=== PATIENT | male | born 1965 | race African-American/Black ===

== ENCOUNTER 2022-03-28 18:27 | Inpatient (IN) | payer OTHER, SELFPAY ==
[2022-03-28 19:22] VITALS: BP 127/67; PULSE 82; RESP 16; TEMP 36.6; O2SAT 96; BMI 46.4
[2022-03-28] MEDS: Gabapentin 600 MG TABLET PO (20:41)
[2022-03-28] MEDS: Melatonin 3 MG TABLET 6 MG PO (20:41)
[2022-03-28] MEDS: Apixaban 5 MG TABLET PO (20:42)
[2022-03-28] MEDS: carBAMazepine 100 MG TAB.CHEW PO (21:10)
[2022-03-28] MEDS: hydrOXYzine HCL 25 MG TABLET PO (21:44)
--- NOTE | 2022-03-28 22:41 | PC.ADMIT ---
Pt is a 56 year old male admitted on CV from [facility] for concerns of Increased depression and anxiety. Recent Hx of SIB through burning self, substance use and non med compliance and relationship stresses. Pt is alert and oriented X4, Covid negative, Tox screen positive for cocain. VSS, Normal EKG. Pt presentation is disheveled, irritable mood. Speech is regular with normal tone, rhythm and ghulam. Pt denies feeling suicidal at this time, endorsed depression and anxiety saying that being here makes him feel like he is in group home. Pt signed a 3 day notice. Pt reports extensive medical history including, neuropathy in the right leg, hyperlipidemia, HTN, arthritis, inflammatory disc and nerve damage in lower extremities, sleep apnea (no CPAP currently being used) deep vein thrombosis and scoliosis. Admission order obtained.
[2022-03-28] MEDS: Amitriptyline HCl 50 MG TABLET 100 MG PO (23:26)
[2022-03-29 06:00] VITALS: BP 143/100; PULSE 98; RESP 16; O2SAT 97
--- NOTE | 2022-03-29 08:00 | ECG_ITS ---
Test Reason : check qtc Blood Pressure : / mmHG Vent. Rate : 087 BPM Atrial Rate : 087 BPM P-R Int : 182 ms QRS Dur : 100 ms QT Int : 390 ms P-R-T Axes : 065 025 036 degrees QTc Int : 469 ms Normal sinus rhythm Normal ECG When compared with ECG of 04-FEB-2003 15:11, No significant change was found Referred By: Rudy Lane Electronically Signed By:GILLIAN MARX MD
--- NOTE | 2022-03-29 08:15 | PC.NURSE ---
Meliton refused lab work this morning.
[2022-03-29] MEDS: Multivitamin TABLET 1 TAB PO (09:47)
[2022-03-29] MEDS: FLUoxetine HCl Oral Solution 20 MG/5 ML SOLUTION 40 MG PO (09:47)
[2022-03-29] MEDS: Gabapentin 600 MG TABLET PO ×3 (09:47→20:14)
[2022-03-29] MEDS: hydrOXYzine HCL 25 MG TABLET PO (09:47)
[2022-03-29] MEDS: Folic Acid 1 MG TABLET PO (09:47)
[2022-03-29] MEDS: Atorvastatin Calcium 40 MG TABLET PO (09:48)
[2022-03-29] MEDS: Thiamine HCL 100 MG TABLET PO (09:48)
[2022-03-29] MEDS: Losartan Potassium 25 MG TABLET PO (09:48)
[2022-03-29] MEDS: Naltrexone HCl 50 MG TABLET PO (09:48)
[2022-03-29] MEDS: Apixaban 5 MG TABLET PO ×2 (09:48→20:14)
[2022-03-29] MEDS: carBAMazepine 100 MG TAB.CHEW PO ×2 (09:48→20:14)
[2022-03-29] MEDS: amLODIPine Besylate 10 MG TABLET PO (13:43)
[2022-03-29 13:46] VITALS: BP 122/66; PULSE 87; RESP 16; O2SAT 96
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
[2022-03-29] MEDS: Prazosin HCL 1 MG CAPSULE PO ×2 (14:27→20:14)
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
[2022-03-29 18:00] VITALS: BP 124/79; PULSE 89; RESP 16; TEMP 36.8; O2SAT 99
[2022-03-29] MEDS: Amitriptyline HCl 50 MG TABLET 100 MG PO (20:15)
[2022-03-29] MEDS: Melatonin 3 MG TABLET 6 MG PO (20:15)
[2022-03-29] MEDS: Acetaminophen 325 MG TABLET 650 MG PO (20:27)
[2022-03-30 06:00] VITALS: BP 104/55; PULSE 82; RESP 14
[2022-03-30] MEDS: Losartan Potassium 25 MG TABLET PO (09:37)
[2022-03-30] MEDS: Thiamine HCL 100 MG TABLET PO (09:37)
[2022-03-30] MEDS: Folic Acid 1 MG TABLET PO (09:37)
[2022-03-30] MEDS: Ferrous Sulfate 324 MG TABLET.DR PO (09:37)
[2022-03-30] MEDS: Multivitamin TABLET 1 TAB PO (09:37)
[2022-03-30] MEDS: Apixaban 5 MG TABLET PO ×2 (09:37→20:24)
[2022-03-30] MEDS: Naltrexone HCl 50 MG TABLET PO (09:37)
[2022-03-30] MEDS: Atorvastatin Calcium 40 MG TABLET PO (09:37)
[2022-03-30] MEDS: FLUoxetine HCl Oral Solution 20 MG/5 ML SOLUTION 40 MG PO (09:37)
[2022-03-30] MEDS: Prazosin HCL 1 MG CAPSULE PO ×3 (09:37→20:25)
[2022-03-30] MEDS: carBAMazepine 100 MG TAB.CHEW PO ×2 (09:38→20:24)
[2022-03-30] MEDS: amLODIPine Besylate 10 MG TABLET PO (09:38)
[2022-03-30] MEDS: Gabapentin 600 MG TABLET PO ×3 (09:38→20:24)
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
[2022-03-30] MEDS: risperiDONE 0.5 MG TABLET PO ×2 (13:52→20:26)
[2022-03-30 17:02] VITALS: BP 138/61; PULSE 83; RESP 18; TEMP 36.8; O2SAT 95
[2022-03-30] MEDS: Amitriptyline HCl 50 MG TABLET 100 MG PO (20:24)
[2022-03-30] MEDS: Melatonin 3 MG TABLET 6 MG PO (20:25)
[2022-03-30] MEDS: hydrOXYzine HCL 50 MG TABLET 100 MG PO (20:29)
[2022-03-31 06:00] VITALS: BP 135/73; PULSE 95; RESP 16; O2SAT 97
[2022-03-31] MEDS: Atorvastatin Calcium 40 MG TABLET PO (09:26)
[2022-03-31] MEDS: Prazosin HCL 1 MG CAPSULE PO ×3 (09:26→21:06)
[2022-03-31] MEDS: Thiamine HCL 100 MG TABLET PO (09:26)
[2022-03-31] MEDS: FLUoxetine HCl Oral Solution 20 MG/5 ML SOLUTION 40 MG PO (09:26)
[2022-03-31] MEDS: amLODIPine Besylate 10 MG TABLET PO (09:26)
[2022-03-31] MEDS: Multivitamin TABLET 1 TAB PO (09:27)
[2022-03-31] MEDS: Apixaban 5 MG TABLET PO ×2 (09:27→21:07)
[2022-03-31] MEDS: Fluticasone Propionate Nasal 16 GM SPRAY 1 SPRAY NOSTRIL-B (09:27)
[2022-03-31] MEDS: carBAMazepine 100 MG TAB.CHEW PO ×2 (09:27→21:06)
[2022-03-31] MEDS: Folic Acid 1 MG TABLET PO (09:27)
[2022-03-31] MEDS: Gabapentin 600 MG TABLET PO ×3 (09:27→21:06)
[2022-03-31] MEDS: Naltrexone HCl 50 MG TABLET PO (09:27)
[2022-03-31] MEDS: Losartan Potassium 25 MG TABLET PO (09:27)
[2022-03-31] MEDS: Ferrous Sulfate 324 MG TABLET.DR PO (09:27)
[2022-03-31] MEDS: hydrOXYzine HCL 50 MG TABLET PO (11:10)
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
[2022-03-31 18:00] VITALS: BP 140/91; PULSE 91; RESP 20; TEMP 36.3; O2SAT 95
[2022-03-31] MEDS: hydrOXYzine HCL 50 MG TABLET 100 MG PO (21:05)
[2022-03-31] MEDS: Amitriptyline HCl 50 MG TABLET 100 MG PO (21:06)
[2022-03-31] MEDS: Melatonin 3 MG TABLET 6 MG PO (21:06)
[2022-03-31] MEDS: risperiDONE 0.5 MG TABLET PO (21:06)
[2022-04-01 06:00] VITALS: BP 132/68; PULSE 86; RESP 16; TEMP 36.6; O2SAT 96
[2022-04-01 08:45] VITALS: BP 139/76
[2022-04-01] MEDS: Prazosin HCL 1 MG CAPSULE PO ×3 (08:57→21:29)
[2022-04-01] MEDS: FLUoxetine HCl Oral Solution 20 MG/5 ML SOLUTION 40 MG PO (08:57)
[2022-04-01] MEDS: Ferrous Sulfate 324 MG TABLET.DR PO (08:57)
[2022-04-01] MEDS: Atorvastatin Calcium 40 MG TABLET PO (08:58)
[2022-04-01] MEDS: Thiamine HCL 100 MG TABLET PO (08:58)
[2022-04-01] MEDS: Naltrexone HCl 50 MG TABLET PO (08:58)
[2022-04-01] MEDS: carBAMazepine 100 MG TAB.CHEW PO ×2 (08:58→21:29)
[2022-04-01] MEDS: Folic Acid 1 MG TABLET PO (08:58)
[2022-04-01] MEDS: Gabapentin 600 MG TABLET PO ×3 (08:58→21:29)
[2022-04-01] MEDS: amLODIPine Besylate 10 MG TABLET PO (08:58)
[2022-04-01] MEDS: Losartan Potassium 25 MG TABLET PO (08:58)
[2022-04-01] MEDS: Apixaban 5 MG TABLET PO ×2 (08:58→21:29)
[2022-04-01] MEDS: Multivitamin TABLET 1 TAB PO (08:58)
[2022-04-01] MEDS: Fluticasone Propionate Nasal 16 GM SPRAY 1 SPRAY NOSTRIL-B (09:03)
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
[2022-04-01] MEDS: Acetaminophen 325 MG TABLET 650 MG PO (14:22)
[2022-04-01 21:15] VITALS: BP 144/70; PULSE 78; TEMP 36.3; O2SAT 98
[2022-04-01] MEDS: hydrOXYzine HCL 50 MG TABLET 100 MG PO (21:28)
[2022-04-01] MEDS: Melatonin 3 MG TABLET 6 MG PO (21:28)
[2022-04-01] MEDS: Amitriptyline HCl 50 MG TABLET 100 MG PO (21:29)
[2022-04-02] MEDS: FLUoxetine HCl Oral Solution 20 MG/5 ML SOLUTION 40 MG PO (08:39)
[2022-04-02] MEDS: amLODIPine Besylate 10 MG TABLET PO (08:39)
[2022-04-02] MEDS: Atorvastatin Calcium 40 MG TABLET PO (08:39)
[2022-04-02] MEDS: Naltrexone HCl 50 MG TABLET PO (08:39)
[2022-04-02] MEDS: carBAMazepine 100 MG TAB.CHEW PO (08:39)
[2022-04-02] MEDS: Prazosin HCL 1 MG CAPSULE PO ×2 (08:39→14:12)
[2022-04-02] MEDS: Ferrous Sulfate 324 MG TABLET.DR PO (08:39)
[2022-04-02] MEDS: Gabapentin 600 MG TABLET PO ×2 (08:39→14:12)
[2022-04-02] MEDS: Thiamine HCL 100 MG TABLET PO (08:39)
[2022-04-02] MEDS: Apixaban 5 MG TABLET PO (08:39)
[2022-04-02] MEDS: Multivitamin TABLET 1 TAB PO (08:39)
[2022-04-02] MEDS: Folic Acid 1 MG TABLET PO (08:39)
[2022-04-02] MEDS: Losartan Potassium 25 MG TABLET PO (08:40)
[2022-04-02] MEDS: Fluticasone Propionate Nasal 16 GM SPRAY 1 SPRAY NOSTRIL-B (08:42)
[2022-04-02 08:44] VITALS: BP 138/65; PULSE 98; RESP 18; TEMP 36.6; O2SAT 97
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
[2022-04-02] MEDS: hydrOXYzine HCL 50 MG TABLET PO (14:13)
[2022-04-02 14:14] VITALS: BP 142/69; PULSE 97
[2022-04-04 00:17] LABS: Amitriptyline, Serum 66 mcg/L; Nortriptyline, Serum 29 mcg/L; Total (Ami+Nor) 95 mcg/L (100-250)
== END 2022-04-02 14:44 | disposition home or self-care (01) | DRG 751 ==
PROVIDERS: Psychiatry & Neurology Psychiatry; Admitting Provider Psychiatry & Neurology Psychiatry; PCP Family Medicine; Visit Provider Clinical Nurse Specialist Psychiatric/Mental Health, Adult
DX: F33.2 Major depressive disorder, recurrent severe without psychotic features (principal); F43.10 Post-traumatic stress disorder, unspecified; I10 Essential (primary) hypertension; Z86.718 Personal history of other venous thrombosis and embolism; Z91.030 Bee allergy status; Z88.6 Allergy status to analgesic agent; Z88.8 Allergy status to other drugs, medicaments and biological substances; Z91.52 Personal history of nonsuicidal self-harm; Z79.01 Long term (current) use of anticoagulants; Z79.51 Long term (current) use of inhaled steroids; Z79.899 Other long term (current) drug therapy
CPT/HCPCS: 36415; 80335; 93005

== ENCOUNTER 2023-03-06 08:38 | Outpatient (REF) | payer OTHER, SELFPAY ==
[2023-03-06 11:25] LABS: Blood Urea Nitrogen 14 mg/dL (9-16); Estimated Glomerular Filt Rate > 60
== END 2023-03-06 08:39 | disposition home or self-care (01) ==
LOC: HO.LAB 08:38
PROVIDERS: PCP Family Medicine; Visit Provider Ophthalmology
DX: R94.4 Abnormal results of kidney function studies (principal)
CPT/HCPCS: 36415; 82565; 84520

== ENCOUNTER 2023-07-09 12:09 | Outpatient (REF) | payer OTHER, SELFPAY ==
[2023-07-09 13:38] LABS: Blood Urea Nitrogen 6 mg/dL (9-16); Estimated Glomerular Filt Rate > 60
== END 2023-07-09 12:10 | disposition home or self-care (01) ==
LOC: HO.LAB 12:09
PROVIDERS: PCP Family Medicine; Visit Provider Ophthalmology
DX: H05.20 Unspecified exophthalmos (principal)
CPT/HCPCS: 36415; 82565; 84520